=== PATIENT | female | born 1960 | race African-American/Black ===

== ENCOUNTER 2021-10-28 20:53 | Inpatient (IN) | payer OTHER, MEDICAID ==
[~2021-10-28] VITALS: Ht 157.5 cm; Wt 85.9 kg
[2021-10-28 22:31] LABS: Basophils # (auto) 0.1 10 ^3/uL (0-0.2); Basophils % (auto) 0.5 % (0.0-2.0); Eosinophils # (auto) 0.1 10 ^3/uL (0-0.8); Eosinophils % (auto) 1.1 % (0.0-7.0); Hematocrit 32.2 % (36.0-46.0); Hemoglobin 10.8 g/dL (12.2-16.2); Lymphocytes # (auto) 2.9 10 ^3/uL (0.4-5.4); Lymphocytes % (auto) 26.7 % (10.0-50.0); Mean Corpuscular Hemoglobin 30.8 pg (28.0-32.0); Mean Corpuscular Hgb Conc. 33.6 g/dL (32.0-36.0); Mean Corpuscular Volume 91.6 fL (80.0-100.0); Monocytes # (auto) 0.7 10 ^3/uL (0-1.3); Monocytes % (auto) 6.5 % (0.0-12.0); Neutrophils # (auto) 7.2 10 ^3/uL (1.6-8.6); Neutrophils % (auto) 65.2 % (37.0-80.0); Nucleated Red Blood Cells % 0.1 %; Red Blood Cells 3.51 10^6/uL (4.0-5.20); Red Cell Distribution Width 13.2 % (11.8-14.3)
[2021-10-28 22:45] LABS: INR 0.99 (0.9-1.15); Partial Thromboplastin Time 22.9 sec (23.6-33.0)
[2021-10-28 22:49] LABS: Salicylate 2.1 mg/dL (2.8-20.0)
[2021-10-28 22:50] LABS: Albumin 3.4 g/dL (3.4-5.0); Anion Gap 7 (5-15); Blood Urea Nitrogen 11 mg/dL (7-18); Calcium 8.5 mg/dL (8.5-10.1); Carbon Dioxide 26 mmol/L (21-32); Chloride 107 mmol/L (98-107); Glucose 103 mg/dL (74-106); Magnesium 2.2 mg/dL (1.6-2.6); Potassium 3.4 mmol/L (3.5-5.1); Sodium 140 mmol/L (136-145)
[2021-10-28 22:51] LABS: Acetaminophen < 2.0 ug/mL (10-30)
[2021-10-28 22:55] LABS: Alanine Aminotransferase 16 U/L (13-56); Alkaline Phosphatase 51 U/L (45-117); Aspartate Aminotransferase 15 U/L (15-37); BUN/Creatinine Ratio 10.2; Bilirubin, Total 0.2 mg/dL (0.2-1.0); GFR African American 66 mL/min; GFR Non-African American 55 mL/min; Total Protein 6.8 g/dL (6.4-8.2)
[2021-10-28 23:33] LABS: Blood Alcohol < 3.0 mg/dL (0-5)
[2021-10-29 00:02] LABS: Urine Bacteria FEW /hpf (None Seen); Urine Blood Negative /uL (Negative); Urine Hyaline Cast FEW /lpf (0 - 2); Urine Mucus FEW (None Seen); Urine Specific Gravity 1.008 (1.001-1.035); Urine WBC <1 /hpf (0 - 5)
[2021-10-29 00:21] LABS: Amphetamine Screen, Urine NEGATIVE (NEGATIVE); Barbiturate Scree,Urine NEGATIVE (NEGATIVE); Benzodiazephine Screen, Urine NEGATIVE (NEGATIVE); Cannabinoid Screen, Urine NEGATIVE (NEGATIVE); Cocaine Screen, Urine NEGATIVE (NEGATIVE); Opiate Scree,Urine POSITIVE (NEGATIVE); Phencyclidine Screen, Urine NEGATIVE (NEGATIVE)
[2021-10-29] MEDS ORDERED: NALOXONE HCL 1MG/ML 2ML SYRINGE IV ONE (00:30)
[2021-10-29 00:58] LABS: Alcohol, Urine < 3.0 mg/dL (0-10)
[2021-10-29] MEDS ORDERED: SODIUM CHLORIDE 0.9% 1,000 ML IV ONE (01:00)
[2021-10-29] MEDS ORDERED: DEXTROSE (50%) 50ML SYRG IV PRN (03:15)
[2021-10-29] MEDS ORDERED: ONDANSETRON HCL 4 MG/2 ML VIAL IV PRN (03:15)
[2021-10-29 05:12] VITALS: BP 146/76
[2021-10-29] MEDS ORDERED: LISI20TA28 PO (06:01)
[2021-10-29] MEDS ORDERED: HYDR-4798 PO (06:01)
[2021-10-29] MEDS ORDERED: SIMV-8 PO (06:03)
[2021-10-29] MEDS ORDERED: GABA100C9 PO (06:04)
[2021-10-29] MEDS ORDERED: POTA10TA51 PO (06:05)
[2021-10-29] MEDS ORDERED: FURO40TA4 PO (06:06)
[2021-10-29] MEDS ORDERED: DULO60CA PO (06:07)
[2021-10-29] MEDS: InsuLIN REG 1unit/0.01ml Soln (100units/ml) SC SCH ×2 (06:35→11:13)
[2021-10-29] MEDS: ACCU-CHEK COMFORT CURVE STRIP VI SCH ×2 (06:35→11:13)
[2021-10-29 09:00] VITALS: BP 140/86
[2021-10-29 09:09] LABS: Basophils # (auto) 0.1 10 ^3/uL (0-0.2); Basophils % (auto) 0.7 % (0.0-2.0); Eosinophils # (auto) 0.1 10 ^3/uL (0-0.8); Eosinophils % (auto) 0.5 % (0.0-7.0); Hematocrit 34.1 % (36.0-46.0); Hemoglobin 11.2 g/dL (12.2-16.2); Lymphocytes # (auto) 2.3 10 ^3/uL (0.4-5.4); Mean Corpuscular Hemoglobin 30.2 pg (28.0-32.0); Mean Corpuscular Hgb Conc. 32.8 g/dL (32.0-36.0); Mean Corpuscular Volume 92.1 fL (80.0-100.0); Monocytes # (auto) 0.8 10 ^3/uL (0-1.3); Monocytes % (auto) 7.2 % (0.0-12.0); Neutrophils # (auto) 7.7 10 ^3/uL (1.6-8.6); Neutrophils % (auto) 70.6 % (37.0-80.0); Nucleated Red Blood Cells % 0.1 %; Red Blood Cells 3.71 10^6/uL (4.0-5.20); Red Cell Distribution Width 13.4 % (11.8-14.3); White Blood Cell 10.9 10^3/uL (4.4-10.8)
[2021-10-29 09:31] LABS: BUN/Creatinine Ratio 10.6; Calcium 8.8 mg/dL (8.5-10.1); Potassium 3.6 mmol/L (3.5-5.1)
[2021-10-29] MEDS: ACETAMINOPHEN 325 MG TAB PO PRN ×2 (09:51→16:09)
[2021-10-29] MEDS ORDERED: FUROSEMIDE 40 MG TAB PO SCH (10:00)
[2021-10-29] MEDS ORDERED: ENOXAPARIN SOD 40 MG/0.4 ML SYRINGE SC SCH (10:00)
[2021-10-29] MEDS ORDERED: LISINOPRIL 20 MG TAB PO SCH (10:00)
[2021-10-29] MEDS ORDERED: PANTOPRAZOLE 40 MG TAB PO SCH (10:00)
[2021-10-29 13:00] VITALS: BP 131/70
[2021-10-29] MEDS ORDERED: OXYCODONE W/ ACETAMINOPHEN 5/325MG TABLET PO ONE (14:30)
[2021-10-29] MEDS ORDERED: GABAPENTIN 100 MG CAP PO ONE (14:30)
[2021-10-29] MEDS ORDERED: ATORVASTATIN 20 MG TAB PO SCH (22:00)
== END 2021-10-29 16:31 | disposition home or self-care (01) | DRG 92 ==
LOC: EDBD 20:53 → ER 20:53 → OVERFLOW 10-29 03:14 → WEST WING 10-29 05:35
PROVIDERS: ADMIT Nurse Practitioner; ATTEND Internal Medicine Geriatric Medicine
DX: G92.9 Unspecified toxic encephalopathy (principal); F11.20 Opioid dependence, uncomplicated; E11.9 Type 2 diabetes mellitus without complications; E87.6 Hypokalemia; E78.5 Hyperlipidemia, unspecified; I10 Essential (primary) hypertension; E66.01 Morbid (severe) obesity due to excess calories; G89.29 Other chronic pain; M54.9 Dorsalgia, unspecified; Z20.822 Contact with and (suspected) exposure to COVID-19; Z68.34 Body mass index [BMI] 34.0-34.9, adult; Z79.84 Long term (current) use of oral hypoglycemic drugs
CPT/HCPCS: 36415; 70450; 71045; 80048; 80053; 80307; 80320; 80329; 81001; 82962; 83735; 84443; 84484; 85025; 85610; 85730; 96361; 96374; 99291; G0378

== ENCOUNTER → 2022-08-10 | Outpatient (CLI) | payer OTHER ==
[~2022-08-10] MED LIST: DULO60CA PO; FURO40TA4 PO; GABA100C9 PO; HYDR-4798 PO; LISI20TA28 PO; POTA10TA51 PO; SIMV-8 PO
[2022-08-10 11:24] LABS: Basophils # (auto) 0 10 ^3/uL (0-0.2); Basophils % (auto) 0.4 % (0.0-2.0); Eosinophils # (auto) 0.1 10 ^3/uL (0-0.8); Eosinophils % (auto) 1.4 % (0.0-7.0); Hematocrit 32.4 % (36.0-46.0); Hemoglobin 10.7 g/dL (12.2-16.2); Lymphocytes # (auto) 3.3 10 ^3/uL (0.4-5.4); Lymphocytes % (auto) 41.7 % (10.0-50.0); Mean Corpuscular Hemoglobin 29.4 pg (28.0-32.0); Mean Corpuscular Hgb Conc. 32.9 g/dL (32.0-36.0); Mean Corpuscular Volume 89.1 fL (80.0-100.0); Monocytes # (auto) 0.7 10 ^3/uL (0-1.3); Monocytes % (auto) 9.2 % (0.0-12.0); Neutrophils # (auto) 3.7 10 ^3/uL (1.6-8.6); Neutrophils % (auto) 47.3 % (37.0-80.0); Nucleated Red Blood Cells % 0.1 %; Red Blood Cells 3.64 10^6/uL (4.0-5.20); White Blood Cell 7.9 10^3/uL (4.4-10.8)
[2022-08-10 12:14] LABS: Potassium 3.9 mmol/L (3.5-5.1)
[2022-08-10 12:26] LABS: Albumin 3.4 g/dL (3.4-5.0); BUN/Creatinine Ratio 17.9 (10.0-20.0); Bilirubin, Total 0.4 mg/dL (0.2-1.0); Calcium 8.9 mg/dL (8.5-10.1); Total Protein 6.9 g/dL (6.4-8.2)
== END | disposition home or self-care (01) ==
LOC: LAB 10:54
PROVIDERS: ATTEND Internal Medicine
DX: Z00.01 Encounter for general adult medical examination with abnormal findings (principal); E78.5 Hyperlipidemia, unspecified; E11.69 Type 2 diabetes mellitus with other specified complication; E66.3 Overweight
CPT/HCPCS: 36415; 80053; 80061; 82043; 82306; 82550; 83036; 84436; 84443; 84480; 85025

== ENCOUNTER → 2023-01-15 | Outpatient (CLI) | payer OTHER ==
[~2023-01-15] MED LIST changes: -DULO60CA PO; +DULO60CA41 PO; +GABA-1308 PO; -GABA100C9 PO; -LISI20TA28 PO; +LISI20TA56 PO; -SIMV-8 PO; +SIMV20TA20 PO
[2023-01-15 09:58] LABS: Anion Gap 6.5 (5-15); Carbon Dioxide 28.5 mmol/L (20-30); Chloride 104 mmol/L (98-107); Potassium 3.8 mmol/L (3.5-5.1); Sodium 139 mmol/L (136-145)
[2023-01-15 09:59] LABS: Calcium 9.2 mg/dL (8.5-10.1)
[2023-01-15 10:02] LABS: Creatinine, Urine 16.73 mg/dL (30.0-125.0)
[2023-01-15 10:03] LABS: Glucose 115 mg/dL (74-106)
[2023-01-15 10:04] LABS: BUN/Creatinine Ratio 9.6 (10.0-20.0); Blood Urea Nitrogen 8 mg/dL (9-23)
[2023-01-15 10:07] LABS: Micro Albumin < 3.0 mg/L (<30.0)
== END | disposition home or self-care (01) ==
LOC: LAB 08:14
PROVIDERS: ATTEND Internal Medicine
DX: E11.9 Type 2 diabetes mellitus without complications (principal)
CPT/HCPCS: 36415; 80048; 82043; 82570; 83036

== ENCOUNTER 2023-02-13 11:18 | Inpatient (IN) | payer OTHER, MEDICAID ==
[~2023-02-13] VITALS: Ht 165.1 cm; Wt 86.7 kg
[2023-02-13 12:04] LABS: Basophils # (auto) 0.1 10 ^3/uL (0-0.2); Basophils % (auto) 0.8 % (0.0-2.0); Eosinophils # (auto) 0.1 10 ^3/uL (0-0.8); Eosinophils % (auto) 1.4 % (0.0-7.0); Hematocrit 34.8 % (36.0-46.0); Hemoglobin 11.4 g/dL (12.2-16.2); Lymphocytes # (auto) 3.3 10 ^3/uL (0.4-5.4); Lymphocytes % (auto) 42.5 % (10.0-50.0); Mean Corpuscular Hgb Conc. 32.8 g/dL (32.0-36.0); Mean Corpuscular Volume 88.4 fL (80.0-100.0); Monocytes # (auto) 0.7 10 ^3/uL (0-1.3); Monocytes % (auto) 8.9 % (0.0-12.0); Neutrophils # (auto) 3.6 10 ^3/uL (1.6-8.6); Neutrophils % (auto) 46.4 % (37.0-80.0); Nucleated Red Blood Cells % 0.1 %; Red Blood Cells 3.94 10^6/uL (4.0-5.20); Red Cell Distribution Width 12.9 % (11.8-14.3); White Blood Cell 7.7 10^3/uL (4.4-10.8)
[2023-02-13 12:23] LABS: Albumin 3.9 g/dL (3.2-4.8); Alkaline Phosphatase 80 U/L (46-116); Anion Gap 5 (5-15); Aspartate Aminotransferase 9 U/L (13-40); BUN/Creatinine Ratio 11.6 (10.0-20.0); Bilirubin, Total 0.6 mg/dL (0.2-1.0); Blood Urea Nitrogen 8 mg/dL (9-23); Calcium 9.2 mg/dL (8.7-10.4); Carbon Dioxide 29 mmol/L (20-30); Chloride 105 mmol/L (98-107); Glucose 115 mg/dL (74-106); Magnesium 1.9 mg/dL (1.6-2.6); Potassium 4.2 mmol/L (3.5-5.1); Sodium 139 mmol/L (136-145); Total Protein 7.2 g/dL (5.7-8.2)
[2023-02-13 12:26] LABS: Alanine Aminotransferase < 9 U/L (7-40)
[2023-02-13] MEDS ORDERED: SODIUM CHLORIDE 0.9% 1,000 ML IV ONE (12:45)
[2023-02-13] MEDS ORDERED: ASPirin 81 mg TAB PO ONE (12:45)
[2023-02-13] MEDS ORDERED: MORPHINE SULFATE 4 MG/ML SYR/VIAL IV PRN (12:45)
[2023-02-13 13:07] LABS: INR 0.98 (0.9-1.15); Partial Thromboplastin Time 27.7 SEC (24.5-34.5); Prothrombin Time 10.3 sec (9.3-11.8)
[2023-02-13 15:05] VITALS: PULSE 76; RESP 17; O2SAT 95
[2023-02-13 15:06] LABS: Urine Bacteria NONE SEEN /hpf (None Seen); Urine Blood TRACE /uL (Negative); Urine Clarity HAZY (Clear); Urine Color Yellow (Yellow); Urine Mucus FEW (None Seen); Urine Protein, UAD Negative (Negative); Urine Specific Gravity 1.017 (1.001-1.035); Urine Urobilinogen Normal (Negative); Urine WBC 6 /hpf (0 - 5)
[2023-02-13] MEDS ORDERED: IPRATROPIUM BROM 0.5 MG/2.5ML INH SOL NEB ONE (15:30)
[2023-02-13] MEDS ORDERED: cefTRIAXone 1GM/50ML D5W 50 ML IV ONE (15:30)
[2023-02-13] MEDS ORDERED: ALBUTEROL SULF 2.5 MG/0.5ML(0.5%) NEB SOLN NEB ONE (15:30)
[2023-02-13] MEDS ORDERED: ONDANSETRON HCL 4 MG/2 ML VIAL IV PRN (18:00)
[2023-02-13] MEDS ORDERED: DOCUSATE SOD 100 MG CAP PO PRN (18:00)
[2023-02-13] MEDS ORDERED: DEXTROSE (50%) 50ML SYRG IV PRN (18:00)
[2023-02-13] MEDS: CYCLOBENZAPRINE HCL 10 MG TAB PO PRN (18:56)
[2023-02-13 19:45] VITALS: PULSE 72; RESP 15; O2SAT 92
[2023-02-13] MEDS: MORPHINE SULFATE INJ 2 MG/ml SYRG IV PRN (20:40)
[2023-02-13 22:00] VITALS: BP 119/53; PULSE 58; RESP 16; TEMP 98; O2SAT 92
[2023-02-13] MEDS: InsuLIN REG 1unit/0.01ml Soln (100units/ml) SC SCH (22:00)
[2023-02-13 22:12] VITALS: BP 119/53; PULSE 68; RESP 16; TEMP 98; O2SAT 94
[2023-02-13] MEDS: ATORVASTATIN 20 MG TAB PO SCH (22:31)
[2023-02-13] MEDS: ACCU-CHEK COMFORT CURVE STRIP VI SCH (22:31)
[2023-02-13] MEDS: GABAPENTIN 100 MG CAP PO SCH (22:31)
[2023-02-13 23:12] VITALS: BP 119/53; PULSE 58; RESP 20; TEMP 98.4; O2SAT 92
[2023-02-14] VITALS (7 sets, daily range): BP systolic 117–134; BP diastolic 39–82; PULSE 60–79; RESP 18–20; TEMP 97.8–98.4; O2SAT 94–100
[2023-02-14] MEDS: CYCLOBENZAPRINE HCL 10 MG TAB PO PRN (04:01)
[2023-02-14 05:27] LABS: Basophils # (auto) 0 10 ^3/uL (0-0.2); Basophils % (auto) 0.5 % (0.0-2.0); Eosinophils # (auto) 0.3 10 ^3/uL (0-0.8); Eosinophils % (auto) 2.8 % (0.0-7.0); Hematocrit 33.3 % (36.0-46.0); Lymphocytes # (auto) 3.9 10 ^3/uL (0.4-5.4); Lymphocytes % (auto) 43.1 % (10.0-50.0); Mean Corpuscular Hemoglobin 29.3 pg (28.0-32.0); Mean Corpuscular Hgb Conc. 32.9 g/dL (32.0-36.0); Mean Corpuscular Volume 89.1 fL (80.0-100.0); Monocytes # (auto) 0.8 10 ^3/uL (0-1.3); Monocytes % (auto) 9.2 % (0.0-12.0); Neutrophils % (auto) 44.4 % (37.0-80.0); Nucleated Red Blood Cells % 0.1 %; Red Blood Cells 3.74 10^6/uL (4.0-5.20); Red Cell Distribution Width 12.9 % (11.8-14.3); White Blood Cell 9.1 10^3/uL (4.4-10.8)
[2023-02-14 05:54] LABS: Alkaline Phosphatase 86 U/L (46-116); Calcium 8.9 mg/dL (8.7-10.4); Carbon Dioxide 29 mmol/L (20-30); Chloride 107 mmol/L (98-107); Glucose 114 mg/dL (74-106); Potassium 4.2 mmol/L (3.5-5.1); Sodium 140 mmol/L (136-145)
[2023-02-14 05:55] LABS: Albumin 3.6 g/dL (3.2-4.8); Anion Gap 4 (5-15); Aspartate Aminotransferase < 8 U/L (13-40); BUN/Creatinine Ratio 8.4 (10.0-20.0); Blood Urea Nitrogen 7 mg/dL (9-23)
[2023-02-14 05:56] LABS: Bilirubin, Total 0.3 mg/dL (0.2-1.0); Total Protein 6.7 g/dL (5.7-8.2)
[2023-02-14] MEDS: GABAPENTIN 100 MG CAP PO SCH ×3 (05:56→22:24)
[2023-02-14] MEDS: ACCU-CHEK COMFORT CURVE STRIP VI SCH ×4 (06:02→22:25)
[2023-02-14] MEDS: InsuLIN REG 1unit/0.01ml Soln (100units/ml) SC SCH ×4 (06:02→22:00)
[2023-02-14] MEDS: MORPHINE SULFATE INJ 2 MG/ml SYRG IV PRN ×4 (06:09→22:33)
[2023-02-14 06:13] LABS: Alanine Aminotransferase < 9 U/L (7-40)
[2023-02-14] MEDS: cefTRIAXone 1GM/50ML D5W 50 ML IV SCH (09:57)
[2023-02-14] MEDS: ASPirin 81 mg TAB PO SCH (10:06)
[2023-02-14] MEDS: FUROSEMIDE 40 MG TAB PO SCH (10:07)
[2023-02-14] MEDS: LISINOPRIL 20 MG TAB PO SCH (10:07)
[2023-02-14] MEDS: DULoxetine HCL 30 MG CAP PO SCH (10:09)
[2023-02-14] MEDS: ATORVASTATIN 20 MG TAB PO SCH (22:24)
[2023-02-14] MEDS: methIMAzole 5 MG TAB PO SCH (22:25)
[2023-02-15] VITALS (8 sets, daily range): BP systolic 101–145; BP diastolic 46–87; PULSE 63–105; RESP 15–20; TEMP 97.1–98.6; O2SAT 94–97
[2023-02-15] MEDS: GABAPENTIN 100 MG CAP PO SCH ×3 (05:28→21:34)
[2023-02-15] MEDS: methIMAzole 5 MG TAB PO SCH ×3 (05:28→21:34)
[2023-02-15] MEDS: MORPHINE SULFATE INJ 2 MG/ml SYRG IV PRN (05:29)
[2023-02-15 06:10] LABS: Basophils # (auto) 0 10 ^3/uL (0-0.2); Basophils % (auto) 0.3 % (0.0-2.0); Eosinophils # (auto) 0.2 10 ^3/uL (0-0.8); Eosinophils % (auto) 2.6 % (0.0-7.0); Hematocrit 36.4 % (36.0-46.0); Hemoglobin 12.1 g/dL (12.2-16.2); Lymphocytes # (auto) 3.2 10 ^3/uL (0.4-5.4); Lymphocytes % (auto) 34.1 % (10.0-50.0); Mean Corpuscular Hemoglobin 29.4 pg (28.0-32.0); Mean Corpuscular Hgb Conc. 33.1 g/dL (32.0-36.0); Mean Corpuscular Volume 88.7 fL (80.0-100.0); Monocytes # (auto) 0.8 10 ^3/uL (0-1.3); Monocytes % (auto) 8.5 % (0.0-12.0); Neutrophils # (auto) 5.1 10 ^3/uL (1.6-8.6); Neutrophils % (auto) 54.5 % (37.0-80.0); Red Blood Cells 4.11 10^6/uL (4.0-5.20); Red Cell Distribution Width 12.4 % (11.8-14.3); White Blood Cell 9.3 10^3/uL (4.4-10.8)
[2023-02-15 06:20] LABS: Anion Gap 5 (5-15); Carbon Dioxide 28 mmol/L (20-30); Chloride 104 mmol/L (98-107); Potassium 3.7 mmol/L (3.5-5.1); Sodium 137 mmol/L (136-145)
[2023-02-15 06:21] LABS: Calcium 9.4 mg/dL (8.5-10.1)
[2023-02-15 06:26] LABS: BUN/Creatinine Ratio 8.7 (10.0-20.0); Blood Urea Nitrogen 6 mg/dL (9-23); Glucose 102 mg/dL (74-106)
[2023-02-15] MEDS: InsuLIN REG 1unit/0.01ml Soln (100units/ml) SC SCH ×4 (06:34→21:35)
[2023-02-15] MEDS: ACCU-CHEK COMFORT CURVE STRIP VI SCH ×4 (06:34→21:35)
[2023-02-15] MEDS ORDERED: ACETAMINOPHEN 325 MG TAB PO PRN (09:00)
[2023-02-15] MEDS: LISINOPRIL 20 MG TAB PO SCH (09:15)
[2023-02-15] MEDS: cefTRIAXone 1GM/50ML D5W 50 ML IV SCH (09:15)
[2023-02-15] MEDS: ASPirin 81 mg TAB PO SCH (09:16)
[2023-02-15] MEDS: FUROSEMIDE 40 MG TAB PO SCH (09:16)
[2023-02-15] MEDS: DULoxetine HCL 30 MG CAP PO SCH (09:16)
[2023-02-15 10:19] LABS: Free T3 4.64 pg/mL (2.3-4.2); Free T4 (Free Thyroxine) 1.33 ng/dL (0.89-1.76)
[2023-02-15] MEDS ORDERED: PERCOT PO (15:38)
[2023-02-15] MEDS: OXYCODONE W/ ACETAMINOPHEN 5/325MG TABLET PO PRN (16:35)
[2023-02-15] MEDS: ATORVASTATIN 20 MG TAB PO SCH (21:34)
[2023-02-16] VITALS (9 sets, daily range): BP systolic 103–124; BP diastolic 55–82; PULSE 63–96; RESP 17–20; TEMP 97.8–98.5; O2SAT 95–100
[2023-02-16] MEDS: OXYCODONE W/ ACETAMINOPHEN 5/325MG TABLET PO PRN ×3 (00:46→17:50)
[2023-02-16] MEDS: methIMAzole 5 MG TAB PO SCH ×2 (06:42→13:22)
[2023-02-16] MEDS: GABAPENTIN 100 MG CAP PO SCH ×3 (06:42→21:37)
[2023-02-16] MEDS: ACCU-CHEK COMFORT CURVE STRIP VI SCH ×4 (06:43→21:42)
[2023-02-16] MEDS: InsuLIN REG 1unit/0.01ml Soln (100units/ml) SC SCH ×4 (06:43→21:42)
[2023-02-16] MEDS: FUROSEMIDE 40 MG TAB PO SCH (09:16)
[2023-02-16] MEDS: ASPirin 81 mg TAB PO SCH (09:16)
[2023-02-16] MEDS: DULoxetine HCL 30 MG CAP PO SCH (09:16)
[2023-02-16] MEDS: cefTRIAXone 1GM/50ML D5W 50 ML IV SCH (09:17)
[2023-02-16] MEDS: LISINOPRIL 20 MG TAB PO SCH (09:19)
[2023-02-16] MEDS: ATORVASTATIN 20 MG TAB PO SCH (21:37)
[2023-02-16] MEDS: CYCLOBENZAPRINE HCL 10 MG TAB PO PRN (21:41)
[2023-02-17] MEDS: OXYCODONE W/ ACETAMINOPHEN 5/325MG TABLET PO PRN ×2 (03:15→11:32)
[2023-02-17 04:49] VITALS: BP 98/54; PULSE 67; RESP 18; TEMP 98.1; O2SAT 100
[2023-02-17] MEDS: GABAPENTIN 100 MG CAP PO SCH (06:45)
[2023-02-17] MEDS: InsuLIN REG 1unit/0.01ml Soln (100units/ml) SC SCH ×2 (07:00→11:25)
[2023-02-17] MEDS: ACCU-CHEK COMFORT CURVE STRIP VI SCH ×2 (07:00→11:26)
[2023-02-17 08:00] VITALS: PULSE 74; RESP 20
[2023-02-17 08:45] VITALS: BP 100/61; PULSE 71; RESP 19; TEMP 97.9; O2SAT 99
[2023-02-17] MEDS: ASPirin 81 mg TAB PO SCH (10:16)
[2023-02-17] MEDS: DULoxetine HCL 30 MG CAP PO SCH (10:17)
[2023-02-17] MEDS: FUROSEMIDE 40 MG TAB PO SCH (10:18)
[2023-02-17] MEDS: LISINOPRIL 20 MG TAB PO SCH (10:18)
[2023-02-17] MEDS: cefTRIAXone 1GM/50ML D5W 50 ML IV SCH (10:49)
[2023-02-17 10:57] VITALS: TEMP 36.6
[2023-02-17] MEDS ORDERED: LISI20TA56 PO (10:59)
[2023-02-17] MEDS ORDERED: GAB100C PO (10:59)
[2023-02-17] MEDS ORDERED: POTA-228 PO (10:59)
[2023-02-17] MEDS ORDERED: FURO40TA4 PO (10:59)
[2023-02-17] MEDS ORDERED: DULO60CA41 PO (10:59)
== END 2023-02-17 13:15 | disposition home or self-care (01) | DRG 311 ==
LOC: ER 11:18 → EDBD 11:18 → EDUNIT# 11:18 → TELE 18:01 → TELE-CENTR 21:53
PROVIDERS: ADMIT Internal Medicine; ATTEND Internal Medicine
DX: I24.9 Acute ischemic heart disease, unspecified (principal); N30.01 Acute cystitis with hematuria; I27.20 Pulmonary hypertension, unspecified; D64.9 Anemia, unspecified; G43.009 Migraine without aura, not intractable, without status migrainosus; I10 Essential (primary) hypertension; E78.5 Hyperlipidemia, unspecified; M54.9 Dorsalgia, unspecified; R25.2 Cramp and spasm; E11.9 Type 2 diabetes mellitus without complications; E05.90 Thyrotoxicosis, unspecified without thyrotoxic crisis or storm; E66.9 Obesity, unspecified; Z87.891 Personal history of nicotine dependence; Z68.31 Body mass index [BMI] 31.0-31.9, adult
CPT/HCPCS: 36415; 70450; 71045; 71260; 76536; 80048; 80053; 81001; 82962; 83036; 83735; 84439; 84443; 84481; 84484; 85025; 85379; 85610; 85730; 87086; 93005; 93306; 94640; G0378; J0696

== ENCOUNTER → 2023-07-08 | Outpatient (CLI) | payer OTHER, MEDICAID ==
[~2023-07-08] MED LIST changes: +GAB100C PO; -GABA-1308 PO; +PERCOT PO; +POTA-228 PO
[2023-07-08 10:36] LABS: Calcium 9.4 mg/dL (8.5-10.1); Chloride 106 mmol/L (98-107); Potassium 3.9 mmol/L (3.5-5.1); Sodium 140 mmol/L (136-145)
[2023-07-08 10:37] LABS: Anion Gap 8 (5-15); Carbon Dioxide 26 mmol/L (20-30)
[2023-07-08 10:42] LABS: BUN/Creatinine Ratio 9.9 (10.0-20.0); Blood Urea Nitrogen 8 mg/dL (9-23); Glucose 123 mg/dL (74-106); Triglycerides 122 mg/dL (< 150)
[2023-07-08 10:43] LABS: LDL Cholesterol 97 mg/dL (< 100)
[2023-07-08 10:44] LABS: Cholesterol 171 mg/dL (< 200); Creatinine, Urine 190.01 mg/dL (30.0-125.0); HDL Cholesterol 55 mg/dL (40-59)
== END | disposition home or self-care (01) ==
LOC: LAB 09:56
PROVIDERS: ATTEND Internal Medicine
DX: E11.69 Type 2 diabetes mellitus with other specified complication (principal); E78.5 Hyperlipidemia, unspecified
CPT/HCPCS: 36415; 80048; 80061; 82043; 82570; 83036

== ENCOUNTER → 2023-09-14 | Outpatient (CLI) | payer OTHER, MEDICAID ==
[~2023-09-14] MED LIST changes: +POTA-36 PO; -POTA10TA51 PO
== END | disposition home or self-care (01) ==
LOC: LAB 12:59
PROVIDERS: ATTEND Internal Medicine
DX: Z12.11 Encounter for screening for malignant neoplasm of colon (principal)
CPT/HCPCS: 82270

== ENCOUNTER → 2023-12-02 | Outpatient (CLI) | payer OTHER, MEDICAID ==
[2023-12-02 11:57] LABS: Basophils # (auto) 0.1 10 ^3/uL (0-0.2); Basophils % (auto) 0.8 % (0.0-2.0); Eosinophils # (auto) 0.1 10 ^3/uL (0-0.8); Eosinophils % (auto) 1.5 % (0.0-7.0); Hematocrit 34.7 % (36.0-46.0); Hemoglobin 11.5 g/dL (12.2-16.2); Lymphocytes # (auto) 3.5 10 ^3/uL (0.4-5.4); Lymphocytes % (auto) 44.4 % (10.0-50.0); Mean Corpuscular Hgb Conc. 33.1 g/dL (32.0-36.0); Mean Corpuscular Volume 87.5 fL (80.0-100.0); Monocytes # (auto) 0.8 10 ^3/uL (0-1.3); Monocytes % (auto) 9.6 % (0.0-12.0); Neutrophils # (auto) 3.5 10 ^3/uL (1.6-8.6); Neutrophils % (auto) 43.7 % (37.0-80.0); Nucleated Red Blood Cells % 0.1 %; Red Blood Cells 3.96 10^6/uL (4.0-5.20); Red Cell Distribution Width 13.5 % (11.8-14.3)
[2023-12-02 12:44] LABS: Alanine Aminotransferase 11 U/L (7-40); Albumin 3.7 g/dL (3.2-4.8); Alkaline Phosphatase 71 U/L (46-116); Anion Gap 7 (5-15); Aspartate Aminotransferase 12 U/L (13-40); BUN/Creatinine Ratio 9.7 (10.0-20.0); Blood Urea Nitrogen 7 mg/dL (9-23); Calcium 9.4 mg/dL (8.7-10.4); Carbon Dioxide 27 mmol/L (20-30); Chloride 105 mmol/L (98-107); Cholesterol 157 mg/dL (< 200); Creatine Kinase IFCC 75 U/L (34-145); Glucose 131 mg/dL (74-106); HDL Cholesterol 46 mg/dL (40-59); LDL Cholesterol 100 mg/dL (< 100); Potassium 3.4 mmol/L (3.5-5.1); Sodium 139 mmol/L (136-145); Triglycerides 120 mg/dL (< 150)
[2023-12-02 12:45] LABS: Bilirubin, Total 0.5 mg/dL (0.2-1.0)
== END | disposition home or self-care (01) ==
LOC: LAB 11:22
PROVIDERS: ATTEND Internal Medicine
DX: Z00.00 Encounter for general adult medical examination without abnormal findings (principal); E66.01 Morbid (severe) obesity due to excess calories; E11.42 Type 2 diabetes mellitus with diabetic polyneuropathy
CPT/HCPCS: 36415; 80053; 80061; 82043; 82306; 82550; 83036; 84436; 84443; 84480; 85025; 87086

== ENCOUNTER → 2024-06-02 | Outpatient (CLI) | payer OTHER, MEDICAID ==
[2024-06-02 08:48] LABS: Basophils # (auto) 0 10 ^3/uL (0-0.2); Basophils % (auto) 0.7 % (0.0-2.0); Eosinophils # (auto) 0.2 10 ^3/uL (0-0.8); Eosinophils % (auto) 2.3 % (0.0-7.0); Hematocrit 35.2 % (36.0-46.0); Hemoglobin 11.5 g/dL (12.2-16.2); Lymphocytes # (auto) 2.7 10 ^3/uL (0.4-5.4); Lymphocytes % (auto) 39.7 % (10.0-50.0); Mean Corpuscular Hemoglobin 29.2 pg (28.0-32.0); Mean Corpuscular Hgb Conc. 32.7 g/dL (32.0-36.0); Mean Corpuscular Volume 89.3 fL (80.0-100.0); Monocytes # (auto) 0.7 10 ^3/uL (0-1.3); Monocytes % (auto) 9.9 % (0.0-12.0); Neutrophils # (auto) 3.2 10 ^3/uL (1.6-8.6); Neutrophils % (auto) 47.4 % (37.0-80.0); Nucleated Red Blood Cells % 0.2 %; Platelet Count (auto) 251 10^3/uL (140-450); Red Blood Cells 3.94 10^6/uL (4.0-5.20); Red Cell Distribution Width 14.1 % (11.8-14.3); White Blood Cell 6.7 10^3/uL (4.4-10.8)
[2024-06-02 08:56] LABS: Urine Bacteria FEW /hpf (None Seen); Urine Blood 1+ /uL (Negative); Urine Clarity Turbid (Clear); Urine Color Light-Yellow (Yellow); Urine Mucus FEW (None Seen); Urine Protein, UAD Negative (Negative); Urine Specific Gravity 1.018 (1.001-1.035); Urine Squamous Epithelial Cell FEW /hpf (<5); Urine Urobilinogen Normal (Negative); Urine WBC 64 /hpf (0 - 5); Urine pH 6.5 (5.0-9.0)
[2024-06-02 09:20] LABS: Alkaline Phosphatase 83 U/L (46-116); Anion Gap 6 (5-15); Aspartate Aminotransferase 15 U/L (13-40); BUN/Creatinine Ratio 9.8 (10.0-20.0); Calcium 9.2 mg/dL (8.7-10.4); Carbon Dioxide 28 mmol/L (20-31); Chloride 106 mmol/L (98-107); Cholesterol 167 mg/dL (< 200); Creatine Kinase IFCC 97 U/L (34-145); Glucose 98 mg/dL (74-106); HDL Cholesterol 54 mg/dL (40-59); Sodium 140 mmol/L (136-145); Triglycerides 100 mg/dL (< 150)
[2024-06-02 09:21] LABS: Alanine Aminotransferase < 9 U/L (7-40); Bilirubin, Total 0.5 mg/dL (0.2-1.0); Blood Urea Nitrogen 8 mg/dL (9-23); LDL Cholesterol 100 mg/dL (< 100); Total Protein 6.9 g/dL (5.7-8.2)
== END | disposition home or self-care (01) ==
LOC: LAB 08:26
PROVIDERS: ATTEND Internal Medicine
DX: E11.42 Type 2 diabetes mellitus with diabetic polyneuropathy (principal); E11.69 Type 2 diabetes mellitus with other specified complication; E66.01 Morbid (severe) obesity due to excess calories; M54.9 Dorsalgia, unspecified
CPT/HCPCS: 36415; 80053; 80061; 81001; 82043; 82306; 82550; 83036; 84436; 84443; 84480; 85025; 87086

== ENCOUNTER 2024-10-26 11:09 | Outpatient (CLI) | payer OTHER, MEDICAID ==
[2024-10-26 12:23] LABS: Alanine Aminotransferase 11 U/L (7-40); Alkaline Phosphatase 74 U/L (46-116); Anion Gap 7 (5-15); Aspartate Aminotransferase 15 U/L (0-34); BUN/Creatinine Ratio 10.6 (10.0-20.0); Blood Urea Nitrogen 10 mg/dL (9-23); Calcium 8.9 mg/dL (8.7-10.4); Carbon Dioxide 29 mmol/L (20-31); Chloride 105 mmol/L (98-107); Glucose 96 mg/dL (74-106); Sodium 141 mmol/L (136-145)
[2024-10-26 12:24] LABS: Albumin 3.9 g/dL (3.2-4.8); Bilirubin, Total 0.4 mg/dL (0.2-1.0)
[2024-10-26 15:03] LABS: Creatinine, Urine 197.68 mg/dL (30.0-125.0)
[2024-10-26 15:05] LABS: Microalb/Creat Ratio, Urine < 3.0; Triglycerides 107 mg/dL (< 150)
[2024-10-26 15:06] LABS: Cholesterol 180 mg/dL (< 200); HDL Cholesterol 56 mg/dL (40-59)
[2024-10-26 15:08] LABS: LDL Cholesterol 109 mg/dL (< 100)
== END 2024-10-26 17:00 | disposition home or self-care (01) ==
LOC: LAB 11:09
PROVIDERS: ATTEND Internal Medicine
DX: E78.5 Hyperlipidemia, unspecified (principal); E11.69 Type 2 diabetes mellitus with other specified complication; Z12.11 Encounter for screening for malignant neoplasm of colon; Z13.9 Encounter for screening, unspecified
CPT/HCPCS: 36415; 80053; 80061; 82043; 82570; 83036

== ENCOUNTER 2024-12-11 09:31 | Outpatient (CLI) | payer OTHER, MEDICAID | END 2024-12-11 17:00 | disposition home or self-care (01) | LOC: LAB 09:31 | PROVIDERS: ATTEND Internal Medicine | DX: E11.69 Type 2 diabetes mellitus with other specified complication (principal); E78.5 Hyperlipidemia, unspecified; Z12.11 Encounter for screening for malignant neoplasm of colon; Z13.9 Encounter for screening, unspecified | CPT/HCPCS: 82270 ==

== ENCOUNTER 2025-04-06 13:25 | Outpatient (CLI) | payer OTHER, MEDICAID ==
[2025-04-06 14:43] LABS: Microalb/Creat Ratio, Urine < 3.0
[2025-04-06 14:44] LABS: Alanine Aminotransferase 12 U/L (7-40); Albumin 4.1 g/dL (3.2-4.8); Alkaline Phosphatase 63 U/L (46-116); Anion Gap 7 (5-15); BUN/Creatinine Ratio 13.5 (10.0-20.0); Blood Urea Nitrogen 12 mg/dL (9-23); Calcium 9.1 mg/dL (8.7-10.4); Carbon Dioxide 31 mmol/L (20-31); Chloride 104 mmol/L (98-107); Cholesterol 190 mg/dL (< 200); Glucose 90 mg/dL (74-106); Potassium 4.1 mmol/L (3.5-5.1); Sodium 142 mmol/L (136-145); Total Protein 7.6 g/dL (5.7-8.2); Triglycerides 90 mg/dL (< 150)
[2025-04-06 14:45] LABS: Bilirubin, Total 0.4 mg/dL (0.2-1.0); HDL Cholesterol 63 mg/dL (40-59)
== END 2025-04-06 17:00 | disposition home or self-care (01) ==
LOC: LAB 13:25
PROVIDERS: ATTEND Pathology Anatomic Pathology & Clinical Pathology
DX: E11.69 Type 2 diabetes mellitus with other specified complication (principal); E78.5 Hyperlipidemia, unspecified
CPT/HCPCS: 36415; 80053; 80061; 82043; 82570; 83036